=== PATIENT | male | born 1995 | race Caucasian/White ===

== ENCOUNTER 2017-04-04 11:27 | Emergency (ER) | payer BC, OTHER ==
--- NOTE | 2017-04-04 12:29 | EDM.PDOC ---
ED HPI GENERAL MEDICAL PROBLEM - General Chief Complaint: Lower Extremity Injury/Pain Stated Complaint: LEFT LEG INJURY Time Seen by Provider: 04/04/17 12:18 Source of Information: Reports: Patient History Limitations: Reports: No Limitations - History of Present Illness INITIAL COMMENTS - FREE TEXT/NARRATIVE: Patient is a 21 y/o male who presents to the E.D. complaining of left lower leg pain. 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 Developed immediate pain to the distal lower leg. He has been able to walk on it with a limp. Pain is constant mild in nature. He has no numbness or tingling or motor deficits distally. Denies any additional complaints. 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) Left Leg Pain Score (Numeric/FACES): 6 - Related Data Allergies Allergy/AdvReac Type Severity Reaction Status Date / Time No Known Allergies Allergy Verified 04/04/17 11:43 Home Meds: Home Meds levETIRAcetam [Keppra] 750 mg PO DAILY 04/04/17 [History] Past Medical History Musculoskeletal History: Reports: Other (See Below) Other Musculoskeletal History: right ankle fracturre with cast Neurological History: Reports: Seizure Social & Family History - Tobacco Use Smoking Status *Q: Never Smoker - Caffeine Use Caffeine Use: Reports: Energy Drinks, Soda - Recreational Drug Use Recreational Drug Use: No Review of Systems - Review of Systems Review Of Systems: See Below Musculoskeletal: Reports: Leg Pain (left tib/fib) Skin: Reports: Wound (small abrasion to the anterior tib/fib). Denies: Bruising Neurological: Reports: Difficulty Walking (2nd to pain). Denies: Numbness, Tingling ED EXAM, GENERAL - Physical Exam Exam: See Below Exam Limited By: No Limitations General Appearance: Alert, WD/WN, No Apparent Distress Ears: Hearing Grossly Normal Nose: Normal Inspection Throat/Mouth: Normal Voice, No Airway Compromise Neck: Normal Inspection, Supple Respiratory/Chest: No Respiratory Distress, No Accessory Muscle Use Cardiovascular: Normal Peripheral Pulses, Regular Rate, Rhythm Peripheral Pulses: 2+: Posterior Tibial (L) Extremities: Other (Left leg: small abrasion to the distal tib/fib with mild swelling. Increased pain with palpation. Mild increase noted with flexion/ extension/inversion/eversion of ankle. no sensory motor deficits noted. no pain with palpation of left knee/ankle/foot. ) Course - Vital Signs Last Recorded V/S: Last Vital Signs Temp 98.7 F 04/04/17 11:48 Pulse 84 04/04/17 11:48 Resp 20 04/04/17 11:48 BP 123/82 04/04/17 11:48 Pulse Ox 98 04/04/17 11:48 - Orders/Labs/Meds Orders: Active Orders 24 hr Category Date Time Status Tibia Fibula Lt [CR] Stat Exams 04/04/17 12:22 Taken - Re-Assessments/Exams Free Text/Narrative Re-Assessment/Exam: 04/04/17 12:23 Ordered x-ray of the left tibia/fibula. 04/04/17 13:28 X-ray of the left leg did not reveal any acute bony abnormalities. Final interpretation pending. Will discharge home with instructions as documented. Departure - Departure Time of Disposition: 13:29 Disposition: Home, Self-Care 01 Condition: good Clinical Impression: Contusion of leg, left Qualifiers: Encounter type: initial encounter Qualified Code(s): S80.12XA - Contusion of left lower leg, initial encounter - Discharge Information Instructions: Contusion, [id number] Referrals: PCP,Not In Area [Primary Care Provider] - Forms: ED Department Discharge Additional Instructions: X-ray of the lower leg did not reveal any acute bony abnormalities. Treatment is symptomatic care only including: tylenol and ibuprofen in alternating fashion , ice as needed, elevation to reduce swelling and pain. Refrain from any activities that cause worsening pain. Return to the ED for any new or worsening symptoms. - My Orders Last 24 Hours: My Active Orders 04/04/17 12:22 Tibia Fibula Lt [CR] Stat - Assessment/Plan Last 24 Hours: My Active Orders 04/04/17 12:22 Tibia Fibula Lt [CR] Stat
--- NOTE | 2017-04-06 09:36 | CR ---
Left tibia and fibula: Two views of the left tibia and fibula were obtained. No fracture or other bony abnormality is seen. Impression: 1. No abnormality is identified on two-view left tibia and fibula study. Diagnostic code #1
== END 2017-04-04 13:38 | disposition home or self-care (01) ==
LOC: JD.ED 11:27 → SUPCPDRO 11:27 → JD.ED 13:38
DX: S80.12XA Contusion of left lower leg, initial encounter (principal); Z79.899 Other long term (current) drug therapy; W55.22XA Struck by cow, initial encounter; Y93.K9 Activity, other involving animal care
CPT/HCPCS: 73590-26-LT; 73590-LT; 99282; 99283